=== PATIENT | male | born 1995 | race Caucasian/White ===

== ENCOUNTER 2017-09-21 15:32 | Emergency (ER) | payer OTHER ==
[~2017-09-21] VITALS: Ht 190.5 cm; Wt 98.0 kg
[2017-09-21 15:44] VITALS: TEMP 37; O2SAT 96; Ht 190.5 cm; Wt 98.0 kg
--- NOTE | 2017-09-21 16:19 | DIAGNOSTIC IMAGING REPORT ---
L FOOT MIN 3 VIEWS ROUTINE CLINICAL HISTORY: LEFT EVAL FX trauma. Pain. COMPARISON: None. DISCUSSION: Subacute fracture posterior aspect tarsal navicular. Alignment is anatomic. Remaining osseous structures are considered unremarkable. No additional fractures identified. There is no evidence for soft tissue swelling. IMPRESSION: Subacute fracture posterior aspect tarsal navicular. The above report was generated using voice recognition software. It may contain grammatical, syntax or spelling errors. Electronically signed by: Mani Enriquez M.D. 09/21/2017 4:18 PM Dictated Date/Time: 09/21/2017 4:16 PM
--- NOTE | 2017-09-21 16:48 | EMERGENCY ROOM VISIT NOTE ---
ED Visit Note First contact with patient: 15:49 CHIEF COMPLAINT: Left foot injury 1 day ago HPI: Patient is a 21-year-old male who presents the emergency department for evaluation of pain in his left foot after an injury last evening. He reports that he was wearing a soft top shoes, and his foot was accidentally stepped on by someone wearing boots. He notes pain and swelling in the dorsum of his foot , he points to the mid metatarsal region where he is having the most pain. He took Aleve, and borrowed an ankle brace from a friend for support. He states pain is worse when he tries to plantarflex, and when he tries to bear weight. He denies any ankle pain. REVIEW OF SYSTEMS: Review of systems as per HPI. All other systems reviewed were negative. At least 6 systems reviewed. PMH: Electronic medical records are reviewed and summarized as above/below. See Problem List. SOCIAL HISTORY: Patient is a college student originally from [place], lives locally in an apartment. Non-smoker. PHYSICAL EXAM: Vital Signs: Reviewed Nurse's notes. CONSTITUTIONAL: Patient is a well-appearing 21-year-old male who is awake and alert and in no acute distress. MUSCULOSKELETAL: Examination of the left foot show mild dorsal soft tissue swelling. First metatarsal and Lisfranc joint are nontender. He has pain primarily over the mid second, third and fourth metatarsal regions. Fifth metatarsal is nontender. He has pain primarily with dorsiflexion and plantar flexion and inversion and eversion of the midfoot. Ankle is nontender to palpation. Skin is intact. Capillary refill less than 2 seconds. Sensation light touch is intact over the left lower extremity. EMERGENCY DEPARTMENT COURSE: X-ray of the left foot reveals a subacute fracture of the tarsal navicular. His pain is more in the mid metatarsal distribution, but given the x-ray findings, patient was wrapped with an Zain wrap and placed in a walking boot. Crutches were issued and he was instructed on a weight-bear as tolerated gait. He will be referred to orthopedics for follow-up of the fracture. Differential diagnoses included fracture, sprain, contusion, dislocation, among others. Medication reconciliation: I attest that I have personally reviewed the patient' s current medication list. Blood pressure screening : Patient was found to have normal blood pressure on screening and does not require follow-up. Mark FOOT MIN 3 VIEWS ROUTINE CLINICAL HISTORY: LEFT EVAL FX trauma. Pain. COMPARISON: None. DISCUSSION: Subacute fracture posterior aspect tarsal navicular. Alignment is anatomic. Remaining osseous structures are considered unremarkable. No additional fractures identified. There is no evidence for soft tissue swelling. IMPRESSION: Subacute fracture posterior aspect tarsal navicular. Problem List Medical Problems: (1) Left ankle sprain Status: Resolved Current/Historical Medications No Active Prescriptions or Reported Meds Allergies Coded Allergies: No Known Allergies (Unverified , 09/21/17) Vital Signs Date Time Temp Pulse Resp B/P (MAP) Pulse Ox O2 Delivery O2 Flow Rate FiO2 09/21/17 17:14 64 16 112/70 09/21/17 15:44 37.0 100 16 129/72 96 Departure Information Impression Primary Impression: Fracture of tarsal bone of left foot Prescriptions No Active Prescriptions or Reported Meds Referrals No Doctor, Assigned (PCP) Gordon Brush D.O. Patient Instructions [facility] Additional Instructions Ibuprofen(Motrin, Advil) may be used for fever or pain. Use 600mg every six hours as needed. Take with food. Avoid using more than 2400mg in a 24 hour period. Do not use 2400mg per day for more than three consecutive days without physician direction. Prolonged inappropriate use can lead to stomach upset or ulcers. This medication can be taken if you need to drive, work, or perform activities which may be dangerous when taking narcotic pain medication. (AND/OR) Acetaminophen(Tylenol) may be used for fever or pain. Use 1000mg every six hours as needed. Avoid using more than 3000mg in a 24 hour period. This medication can be taken if you need to drive, work, or perform activities which may be dangerous when taking narcotic pain medication. Ice compresses for 20 minutes at a time four times daily for 2-3 days. Use the crutches and walking boot as instructed. Rest and elevate your injury. Do not get the boot wet. If your boot feels excessively tight, you have worsening pain, develop numbness or tingling, or your digits appear blue, loosen the zain wrap and straps. Then reapply the zain wrap and straps gently. If your symptoms are not quickly relieved return to the ER for re-evaluation. Continue current medications. Return to the ER immediately for any numbness, tingling, severe pain, extreme swelling in the extremity or as needed. Call [facility] on Sunday to arrange follow up for your injury.
[2017-09-21 17:14] VITALS: BP 112/70; PULSE 64
== END 2017-09-21 17:22 | disposition home or self-care (01) ==
LOC: C.EDB 15:34 → C.EDD 17:22
DX: S92.255A Nondisplaced fracture of navicular [scaphoid] of left foot, initial encounter for closed fracture (principal); W50.0XXA Accidental hit or strike by another person, initial encounter